=== PATIENT | female | born 1995 | race Caucasian/White ===

== ENCOUNTER → 2018-10-14 | Outpatient (CLI) | payer OTHER ==
[~2018-10-14] MED LIST: OXYC-865 PO
--- NOTE | 2018-10-15 09:57 | RADIOLOGY IMAGING REPORT ---
[place] [facility] [place] NAME: MIKHAIL BROWN : [id number] MR: [id number] V: [id number] EXAM DATE: ORDERING PHYSICIAN: DARIUS FUNES TECHNOLOGIST: Dallin Navarrete RDMS, TATI PROCEDURE:US LEFT BREAST COMPLETE COMPARISON:None. INDICATIONS:Left breast pain near nipple. Mass felt in this location with whitish oliva discharge. On antibiotics for 1 week with partial decrease in size of the mass. AREAS SCANNED: The 12-3 o'clock position of the Left breast. FINDINGS: In the approximate 1 o'clock position of the Left breast just beneath the skin there is a small ovoid fluid collections measuring approximately 1.2 x 0.2 x 1.7cm. This likely represents residual inflammatory changes and may represent a tiny abscess. Continued clinical follow-up and antibiotic therapy recommended with a follow-up Left breast Ultrasound in approximately 1 month unless clinical findings warrant more immediate attention. DIAGNOSTIC CATEGORY 3--PROBABLY BENIGN FINDING. RECOMMENDATIONS: CLINICAL EVALUATION. ONE MONTH FOLLOW-UP ULTRASOUND: LEFT BREAST. IMPRESSION: BIRADS 3: Probably benign finding. 1. Continued clinical follow-up and antibiotic therapy recommended with a follow-up Left breast Ultrasound approximately 1 month unless clinical findings warrant more immediate attention as described above. Dictated by: Luisa Ervin M.D. on 10/14/2018 at 16:53 Transcribed by: OTF on 10/15/2018 at 8:53 Approved by: Luisa Ervin M.D. on 10/15/2018 at 9:52 [facility]
== END ==
LOC: MAMO 00:49
PROVIDERS: ATTEND Nurse Practitioner Family
DX: R92.8 Other abnormal and inconclusive findings on diagnostic imaging of breast (principal)